=== PATIENT | male | born 1940 | race Caucasian/White ===

== ENCOUNTER 2021-07-25 14:49 | Observation (INO) | payer MEDICARE, OTHER ==
[~2021-07-25] VITALS: Ht 162 cm; Wt 68.5 kg
[2021-07-25 15:16] LABS: BILIRUBIN,URINE NEGATIVE (NEGATIVE); CLARITY,URINE CLEAR; COLOR,URINE YELLOW; GLUCOSE, URINE (UA) NEGATIVE (NEGATIVE); KETONES,URINE TRACE (NEGATIVE); LEUKOCYTE ESTERASE ,URINE NEGATIVE (NEGATIVE); NITRITE,URINE NEGATIVE (NEGATIVE); PROTEIN,URINE NEGATIVE (NEGATIVE)
[2021-07-25 15:24] LABS: BACTERIA,URINE TRACE /HPF; RBC,URINE 50-100 /HPF; SQUAMOUS EPITHELIAL CELL,UR RARE /HPF; WBC,URINE 0-2 /HPF
[2021-07-25 15:41] LABS: BASOPHILS % (AUTO) 1 % (0-10); EOSINOPHILS % (AUTO) 1 % (0-10); HEMATOCRIT 44 % (40-54); HEMOGLOBIN 14.4 g/dL (13.3-17.7); LYMPHOCYTES # (AUTO) 0.9 X 10^3 (1.0-4.0); LYMPHOCYTES % (AUTO) 11 % (12-44); MEAN CORPUSCULAR HEMOGLOBIN 31 pg (25-34); MEAN CORPUSCULAR HGB CONC 33 g/dL (32-36); MEAN CORPUSCULAR VOLUME 93 fL (80-99); MONOCYTES % (AUTO) 10 % (0-12); NEUTROPHILS % (AUTO) 77 % (42-75); PLATELET COUNT 183 10^3/uL (130-400); PROTHROMBIN TIME PATIENT 13.8 SEC (12.2-14.7); WHITE BLOOD COUNT 7.8 10^3/uL (4.3-11.0)
[2021-07-25 15:42] LABS: EOSINOPHILS # (AUTO) 0.1 10^3/uL (0.0-0.3); MONOCYTES # (AUTO) 0.7 X 10^3 (0.0-1.0)
[2021-07-25 16:00] LABS: ALANINE AMINOTRANSFERASE 15 U/L (0-55); ALKALINE PHOSPHATASE 85 U/L (40-136); BILIRUBIN,TOTAL 0.5 MG/DL (0.1-1.0); BUN/CREATININE RATIO 20; CALCIUM 9.5 MG/DL (8.5-10.1); CARBON DIOXIDE 27 MMOL/L (21-32); CHLORIDE 109 MMOL/L (98-107); CREATININE SERUM 1.15 MG/DL (0.60-1.30); GFR ESTIMATED 61; GLUCOSE 126 MG/DL (70-105); SODIUM 143 MMOL/L (135-145)
[2021-07-25 16:01] LABS: ALBUMIN 4.3 GM/DL (3.2-4.5); TOTAL PROTEIN 7.3 GM/DL (6.4-8.2)
--- NOTE | 2021-07-25 16:10 | ED General ---
General Chief Complaint: COVID19 Suspect/Confirmed Stated Complaint: AMS Nursing Triage Note: PT REPORTS A DRY COUGH THAT STARTED YESTERDAY, CHILLS LAST PM, AND CONFUSION THIS AM. REPORTS A HEADACHE THAT STARTED AT ABOUT NOON. Source of Information: Patient, Family History of Present Illness Date Seen by Provider: Jul 25, 2021 Time Seen by Provider: 14:54 Initial Comments 81-year-old male presenting with his and son to the emergency department. He reports that he was having confusion and having trouble walking. He started having some cough with a sore throat chills yesterday. He had a headache starting around 10 AM today. He had noted that he was having trouble concentrating and and felt he was confused when he woke up at 6 AM. He felt that this has improved some throughout the day. He was having some unsteady gait and felt like he could not walk a straight line. He states his cough is dry. He was having no nausea, vomiting, pain with urination, diarrhea, abdominal pain, chest pain. He does have a history of coronary artery disease and had previous CABG. He recently within the last month had seen his last inserter from [facility] and had a cardiac work-up and checkup. They also looked at his carotid arteries at that time. 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 Severity: Moderate Associated Systoms: No Chest Pain; Cough; No Diaphoresis; Fever/Chills, Headaches; No Loss of Appetite, No Nausea/Vomiting, No Rash, No Seizure, No Shortness of Air, No Syncope, No Weakness Allergies and Home Medications Allergies Coded Allergies: No Known Drug Allergies (Unverified , 07/25/21) Patient Home Medication List Home Medication List Reviewed: Yes Review of Systems Review of Systems Constitutional: chills, malaise EENTM: nose congestion, throat pain; No ear discharge, No ear pain, No blurred vision, No double vision, No epistaxis Respiratory: cough, short of breath; No stridor, No wheezing Cardiovascular: No chest pain Gastrointestinal: no symptoms reported Genitourinary: No dysuria, No frequency Musculoskeletal: No joint swelling, No neck pain Skin: No rash Psychiatric/Neurological: Headache; Denies Weakness; Other (unsteady gait) Hematologic/Lymphatic: Denies Blood Clots Past Skbsxry-Avymvd-Qozmda Hx Patient Social History Tobacco Use?: No Use of E-Cig and/or Vaping dev: No Substance use?: No Alcohol Use?: No Pt feels they are or have been: No Past Medical History Surgery/Hospitalization HX: Hx CABG, Htn, Hypercholesterolemia, restless legs Surgeries: Yes Cardiac, CABG Physical Exam Vital Signs Vital Signs - First Documented 07/25/21 15:00 Temp 36.6 Pulse 73 Resp 16 B/P (MAP) 164/74 (104) Pulse Ox 96 O2 Delivery Room Air Capillary Refill : Less Than 3 Seconds Height, Weight, BMI Height: '" Weight: lbs. oz. kg; 26.00 BMI Method: General Appearance: No Apparent Distress, WD/WN HEENT: PERRL/EOMI, Pharynx Normal, Moist Mucous Membranes Neck: Full Range of Motion, Normal Inspection, Non Tender, Supple Respiratory: Chest Non Tender, Lungs Clear, Normal Breath Sounds, No Accessory Muscle Use, No Respiratory Distress Cardiovascular: Regular Rate, Rhythm, Normal Peripheral Pulses Gastrointestinal: Normal Bowel Sounds, No Pulsatile Mass, Non Tender, Soft Rectal: Deferred Back: No CVA Tenderness Extremity: Normal Capillary Refill, Normal Inspection, No Calf Tenderness, No Pedal Edema Neurologic/Psychiatric: Alert, Oriented x3, No Motor/Sensory Deficits, cell changer II- XII Norm as Tested Skin: Normal Color, Warm/Dry Focused Exam Lactate Level 07/25/21 15:45: Lactic Acid Level 0.72 Lactic Acid Level Laboratory Tests Test 07/25/21 15:45 Lactic Acid Level 0.72 MMOL/L (0.50-2.00) Progress/Results/Core Measures Suspected Sepsis SIRS Temperature: Pulse: 73 Respiratory Rate: 16 Laboratory Tests 07/25/21 15:05: White Blood Count 7.8 Blood Pressure 164 /74 Mean: 104 07/25/21 15:45: Lactic Acid Level 0.72 Laboratory Tests 07/25/21 15:05: Creatinine 1.15, INR Comment 1.0, Platelet Count 183, Total Bilirubin 0.5 Results/Orders Lab Results Laboratory Tests Test 07/25/21 14:59 07/25/21 15:05 07/25/21 15:45 07/25/21 15:50 Range/Units Urine Color YELLOW Urine Clarity CLEAR Urine pH 6.0 5-9 Urine Specific [place] 1.025 H 1.016-1.022 Urine Protein NEGATIVE NEGATIVE Urine Glucose (UA) NEGATIVE NEGATIVE Urine Ketones TRACE H NEGATIVE Urine Nitrite NEGATIVE NEGATIVE Urine Bilirubin NEGATIVE NEGATIVE Urine Urobilinogen 0.2 < = 1.0 MG/DL Urine Leukocyte Esterase NEGATIVE NEGATIVE Urine RBC (Auto) 2+ H NEGATIVE Urine RBC 50-100 H /HPF Urine WBC 0-2 /HPF Urine Squamous Epithelial Cells RARE /HPF Urine Crystals NONE /LPF Urine Bacteria TRACE /HPF Urine Casts PRESENT /LPF Urine Hyaline Casts 5-10 H /LPF Urine Mucus LARGE H /LPF Urine Culture Indicated NO White Blood Count 7.8 4.3-11.0 10^3/uL Red Blood Count 4.68 4.30-5.52 10^6/uL Hemoglobin 14.4 13.3-17.7 g/dL Hematocrit 44 40-54 % Mean Corpuscular Volume 93 80-99 fL Mean Corpuscular Hemoglobin 31 25-34 pg Mean Corpuscular Hemoglobin Concent 33 32-36 g/dL Red Cell Distribution Width 13.4 10.0-14.5 % Platelet Count 183 130-400 10^3/uL Mean Platelet Volume 11.0 9.0-12.2 fL Neutrophils (%) (Auto) 77 H 42-75 % Lymphocytes (%) (Auto) 11 L 12-44 % Monocytes (%) (Auto) 10 0-12 % Eosinophils (%) (Auto) 1 0-10 % Basophils (%) (Auto) 1 0-10 % Neutrophils # (Auto) 6.0 1.8-7.8 X 10^3 Lymphocytes # (Auto) 0.9 L 1.0-4.0 X 10^3 Monocytes # (Auto) 0.7 0.0-1.0 X 10^3 Eosinophils # (Auto) 0.1 0.0-0.3 10^3/uL Basophils # (Auto) 0.0 0.0-0.1 10^3/uL Prothrombin Time 13.8 12.2-14.7 SEC INR Comment 1.0 0.8-1.4 Activated Partial Thromboplast Time 30 24-35 SEC Sodium Level 143 135-145 MMOL/L Potassium Level 4.0 3.6-5.0 MMOL/L Chloride Level 109 H 98-107 MMOL/L Carbon Dioxide Level 27 21-32 MMOL/L Anion Gap 7 5-14 MMOL/L Blood Urea Nitrogen 23 H 7-18 MG/DL Creatinine 1.15 0.60-1.30 MG/DL Estimat Glomerular Filtration Rate 61 BUN/Creatinine Ratio 20 Glucose Level 126 H 70-105 MG/DL Calcium Level 9.5 8.5-10.1 MG/DL Corrected Calcium 9.3 8.5-10.1 MG/DL Total Bilirubin 0.5 0.1-1.0 MG/DL Aspartate Amino Transf (AST/SGOT) 19 5-34 U/L Alanine Aminotransferase (ALT/SGPT) 15 0-55 U/L Alkaline Phosphatase 85 40-136 U/L Troponin I < 0.30 <0.30 NG/ML C-Reactive Protein 4.08 H <0.50 MG/DL Total Protein 7.3 6.4-8.2 GM/DL Albumin 4.3 3.2-4.5 GM/DL Lactic Acid Level 0.72 0.50-2.00 MMOL/L Influenza Type A Antigen NEGATIVE NEGATIVE Influenza Type B Antigen NEGATIVE NEGATIVE SARS-CoV-2 RNA (RT-PCR) Positive H Negative My Orders Orders - HEATHER ZABALA MD Ua Culture If Indicated (07/25/21 14:56) Monitor-Rhythm Ecg Trace Only (07/25/21 15:25) Ed Iv/Invasive Line Start (07/25/21 15:25) Cbc With Automated Diff (07/25/21 15:25) Comprehensive Metabolic Panel (07/25/21 15:25) Crp Fs (07/25/21 15:25) Troponin I Fs (07/25/21 15:25) Protime With Inr (07/25/21 15:25) Partial Thromboplastin Time (07/25/21 15:25) Ekg Tracing (07/25/21 15:25) Covid 19 Inhouse Test (07/25/21 15:25) Influenza A & B Antigens (07/25/21 15:25) Ct Head Wo (07/25/21 15:25) Chest 1 View Ap/Pa Only (07/25/21 15:25) Isolation Central Supply Req (07/25/21 15:25) Blood Culture (07/25/21 15:25) Lactic Acid Analyzer (07/25/21 15:25) Ed Admission (Communication) (07/25/21 17:50) Vital Signs/I&O 07/25/21 07/25/21 07/25/21 15:00 15:00 18:18 Temp 36.6 36.2 Pulse 73 81 Resp 16 16 B/P (MAP) 164/74 (104) 176/85 Pulse Ox 96 98 O2 Delivery Room Air Room Air Room Air Capillary Refill : Less Than 3 Seconds Blood Pressure Mean: 104 Progress Note #1: Progress Note Obtain basic labs including urinalysis and cardiac enzymes. Chest x-ray to look for signs of pneumonia. CT of the head since he was complaining of headache and some trouble concentrating and confusion. With his complaint of cough with chills and a sore throat we will also obtain a swab to check for influenza and Covid. Progress Note #2: Progress Note He had no acute ischemia on his electrocardiogram. His chest x-ray does not show any pneumonia. There was some chronic microvascular small vessel disease on his CT of the head. Labs appeared stable with out acute significant abnormality to explain his symptoms. His urinalysis was not showing infection. Influenza was negative. With his complaint and reported feeling unsteady with walking as well as having trouble concentrating and confusion will check with Dr. Urbina for [facility] about admission for TIA work-up and rule out as well as having him as a Covid PUI since the had some symptoms consistent with Covid Progress Note #3: Progress Note Dr. Urbina accepted pt for admit and will continue to monitor. ECG Initial ECG Impression Date: Jul 25, 2021 Initial ECG Impression Time: 15:38 Initial ECG Rate: 72 Initial ECG Rhythm: Normal Sinus Initial ECG Comparisson: No Previous ECG Available Comment Normal sinus rhythm with heart rate 72 bpm. [place] interval 161 ms. Abnormal inferior Q waves. Old anteroseptal infarct with Q waves in V1 and V2. QT interval 388 ms with a QTc interval 425 ms. No prior tracing immediately available for comparison. No acute ST elevation. Diagnostic Imaging Diagonstic Imaging: Xray Plain Films/CT/US/NM/MRI: chest [facility] [place] [place] NAME: TG [facility]FFIELD [facility] REC#: [id number] PT STATUS: REG ER : 1940 PHYSICIAN: HEATHER ZABALA MD ADMIT DATE: 07/25/21/ER FS Signed Date of Exam:07/25/21 CHEST 1 VIEW AP/PA ONLY INDICATION: COVID type symptoms, confusion. COMPARISONS: None FINDINGS: Single view of the chest shows normal heart, pleura and diaphragms. The chest is otherwise senescent with chronic parenchymal changes. No acute consolidations seen. There is a previous median sternotomy for CABG. IMPRESSION: Senescent chest with a previous CABG but no evidence of acute cardiopulmonary disease by plain radiographic criteria. Dictated by: Dictated on workstation # [id number] Dict: 07/25/21 1612 Trans: 07/25/21 1649 CV [id number] Interpreted by: VIC DAY MD Electronically signed by: VIC DAY MD 07/25/211648 Reviewed: Reviewed by Me Diagonstic Imaging: CT Plain Films/CT/US/NM/MRI: head Comments [facility] [place] [place] NAME: TG SHEFFIELD [facility] REC#: [id number] PT STATUS: REG ER : 1940 PHYSICIAN: HEATHER ZABALA MD ADMIT DATE: 07/25/21/ER FS Signed Date of Exam:07/25/21 CT HEAD WO INDICATION: Altered mental status and unsteady gait. TECHNIQUE: Multiple contiguous axial images were obtained through the brain without the use of intravenous contrast. Auto Exposure Controls were utilized during the CT exam to meet ALARA standards for radiation dose reduction. COMPARISON :There is no prior study for comparison. There are mild diffuse atrophic changes. There are no extra-axial fluid collections. No intracranial hemorrhage. No intracranial mass or mass effect. No midline shift. The ventricles are normal in size and position. 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 IMPRESSION: Mild diffuse atrophic changes. 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 There is no acute hemorrhage. Dictated by: Dictated on workstation # [id number] Dict: 07/25/21 1611 Trans: 07/25/219 ACB [id number] Interpreted by: ABEL FRANCES MD Electronically signed by: ABEL FRANCES MD 07/25/21 2779 Reviewed: Reviewed by Me Departure Communication (Admissions) Time/Spoke to Admitting Phy: 17:[address] Urbina about his mental status change that was worse this morning and has improved throughout the day. He still has unsteady gait and feels like he has trouble concentrating. Will admit for additional monitoring testing. He did have recent carotid Dopplers had shown up to 50% blockage but nothing surgical or emergent. And he had cardiac evaluation by his last inserter along with the carotid Dopplers within the last month and told that everything had looked stable. Impression Primary Impression: Unsteady gait when walking Additional Impressions: Confusion and disorientation Person under investigation for COVID-19 Disposition: 30 STILL A PATIENT Condition: Stable Admissions Decision to Admit Reason: Admit from ER (General) Decision to Admit/Date: Jul 25, 2021 Time/Decision to Admit Time: 17:49 Departure-Patient Inst. Referrals: ALE CORNELL MD (PCP) Primary Care Physician HEATHER ZABALA MD Jul 25, 2021 16:10
--- NOTE | 2021-07-25 16:15 | Diagnostic Imaging Report ---
INDICATION: COVID type symptoms, confusion. COMPARISONS: None FINDINGS: Single view of the chest shows normal heart, pleura and diaphragms. The chest is otherwise senescent with chronic parenchymal changes. No acute consolidations seen. There is a previous median sternotomy for CABG. IMPRESSION: Senescent chest with a previous CABG but no evidence of acute cardiopulmonary disease by plain radiographic criteria. Dictated by: Dictated on workstation # [id number]
--- NOTE | 2021-07-25 16:16 | Diagnostic Imaging Report ---
INDICATION: Altered mental status and unsteady gait. TECHNIQUE: Multiple contiguous axial images were obtained through the brain without the use of intravenous contrast. Auto Exposure Controls were utilized during the CT exam to meet ALARA standards for radiation dose reduction. COMPARISON :There is no prior study for comparison. There are mild diffuse atrophic changes. There are no extra-axial fluid collections. No intracranial hemorrhage. No intracranial mass or mass effect. No midline shift. The ventricles are normal in size and position. 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 IMPRESSION: Mild diffuse atrophic changes. 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 There is no acute hemorrhage. Dictated by: Dictated on workstation # [id number]
[2021-07-25 19:50] VITALS: BP 179/85
[2021-07-25] MEDS ORDERED: ACETAMINOPHEN 500 MG TAB (TYLENOL) PO PRN (21:15)
[2021-07-25 23:45] VITALS: BP 121/60
[2021-07-26 03:55] VITALS: BP 167/85
[2021-07-26 06:50] LABS: BASOPHILS % (AUTO) 1 % (0-10); EOSINOPHILS # (AUTO) 0.3 10^3/uL (0.0-0.3); EOSINOPHILS % (AUTO) 4 % (0-10); HEMATOCRIT 42 % (40-54); HEMOGLOBIN 13.6 g/dL (13.3-17.7); LYMPHOCYTES # (AUTO) 1.1 10^3/uL (1.0-4.0); LYMPHOCYTES % (AUTO) 14 % (12-44); MEAN CORPUSCULAR HEMOGLOBIN 30 pg (25-34); MEAN CORPUSCULAR HGB CONC 33 g/dL (32-36); MEAN CORPUSCULAR VOLUME 93 fL (80-99); MEAN PLATELET VOLUME 11.1 fL (9.0-12.2); MONOCYTES # (AUTO) 0.8 10^3/uL (0.0-1.0); MONOCYTES % (AUTO) 10 % (0-12); NEUTROPHILS # (AUTO) 5.5 10^3/uL (1.8-7.8); NEUTROPHILS % (AUTO) 71 % (42-75); PLATELET COUNT 171 10^3/uL (130-400); WHITE BLOOD COUNT 7.7 10^3/uL (4.3-11.0)
[2021-07-26 07:02] LABS: ALBUMIN 3.7 GM/DL (3.2-4.5); POTASSIUM 4.1 MMOL/L (3.6-5.0)
[2021-07-26 07:03] LABS: CALCIUM 9.2 MG/DL (8.5-10.1)
[2021-07-26 07:04] LABS: TOTAL PROTEIN 6.7 GM/DL (6.4-8.2)
[2021-07-26 07:06] LABS: BILIRUBIN,TOTAL 0.6 MG/DL (0.1-1.0)
[2021-07-26 07:08] LABS: CREATININE SERUM 0.87 MG/DL (0.60-1.30)
[2021-07-26 08:51] VITALS: BP 179/90
[2021-07-26] MEDS ORDERED: ATOR20TA66 PO (09:39)
[2021-07-26] MEDS ORDERED: ASPI-1238 PO (09:39)
[2021-07-26] MEDS ORDERED: CARV6.252 PO (09:39)
[2021-07-26] MEDS ORDERED: MULT-1136 PO (09:39)
[2021-07-26] MEDS ORDERED: ROPI0.5T4 PO (09:39)
[2021-07-26 11:37] VITALS: BP 141/75
--- NOTE | 2021-07-26 13:19 | Short Stay Summary ---
Discharge Summary Hospital Course Final Diagnosis: COVID19, possible TIA Hospital Course Date of Admission: Jul 25, 2021 at 19:40 Admission Diagnosis : Confusion Balance disturbance Coronary artery disease Hypertension Family Physician/Provider: Papa West MD Date of Discharge: 07/26/21 Discharge Diagnosis: Confusion Balance disturbance COVID19 Coronary artery disease Hypertension Hospital Course: 81 yo male had some confusion and was somewhat off balance starting around 07/24/21 and was sent to ER due to that, his CT of his head showed some old infarct, but no acute findings and he was having some improvement in his symptoms already. He was admitted for monitoring and found to have positive COVID19 testing. Other labs were unremarkable. He worked with PT and was independent in activities with no balance problems. He was alert and oriented and able to answer questions appropriately, but still felt generally foggy, this was suspected to be related to COVID rather than ischemia, but discussed with his daughter if symptoms persist, may need further work-up. He had no hypoxia, so monoclonal antibody infusion was discussed, but none available today, so orders for outpatient were being set up through clinic on discharge. He has one dose of COVID vaccine documented in clinic on 12/2020. Labs and Pending Lab Test: Laboratory Tests 07/25/21 14:59: Urine Color YELLOW, Urine Clarity CLEAR, Urine pH 6.0, Urine Specific [place] 1.025H, Urine Protein NEGATIVE, Urine Glucose (UA) NEGATIVE, Urine Ketones TRACEH, Urine Nitrite NEGATIVE, Urine Bilirubin NEGATIVE, Urine Urobilinogen 0.2, Urine Leukocyte Esterase NEGATIVE, Urine RBC (Auto) 2+H, Urine RBC 50-100H, Urine WBC 0-2, Urine Squamous Epithelial Cells RARE, Urine Crystals NONE, Urine Bacteria TRACE, Urine Casts PRESENT, Urine Hyaline Casts 5-10H, Urine Mucus LARGEH, Urine Culture Indicated NO 07/25/21 15:05: White Blood Count 7.8, Red Blood Count 4.68, Hemoglobin 14.4, Hematocrit 44, Me an Corpuscular Volume 93, Mean Corpuscular Hemoglobin 31, Mean Corpuscular Hemoglobin Concent 33, Red Cell Distribution Width 13.4, Platelet Count 183, Mean Platelet Volume 11.0, Neutrophils (%) (Auto) 77H, Lymphocytes (%) (Auto) 11L, Monocytes (%) (Auto) 10, Eosinophils (%) (Auto) 1, Basophils (%) (Auto) 1, Neutrophils # (Auto) 6.0, Lymphocytes # (Auto) 0.9L, Monocytes # (Auto) 0.7, Eosinophils # (Auto) 0.1, Basophils # (Auto) 0.0, Prothrombin Time 13.8, INR Comment 1.0, Activated Partial Thromboplast Time 30, Sodium Level 143, Potassium Level 4.0, Chloride Level 109H, Carbon Dioxide Level 27, Anion Gap 7, Blood Urea Nitrogen 23H, Creatinine 1.15, Estimat Glomerular Filtration Rate 61, BUN/Creatinine Ratio 20, Glucose Level 126H, Calcium Level 9.5, Corrected Calcium 9.3, Total Bilirubin 0.5, Aspartate Amino Transf (AST/SGOT) 19, Alanine Aminotransferase (ALT/SGPT) 15, Alkaline Phosphatase 85, Troponin I < 0.30, C- Reactive Protein 4.08H, Total Protein 7.3, Albumin 4.3 07/25/21 15:45: Lactic Acid Level 0.72 07/25/21 15:50: Influenza Type A Antigen NEGATIVE, Influenza Type B Antigen NEGATIVE, SARS-CoV-2 RNA (RT-PCR) PositiveH 07/26/21 06:29: White Blood Count 7.7, Red Blood Count 4.49, Hemoglobin 13.6, Hematocrit 42, Mean Corpuscular Volume 93, Mean Corpuscular Hemoglobin 30, Mean Corpuscular Hemoglobin Concent 33, Red Cell Distribution Width 13.1, Platelet Count 171, Mean Platelet Volume 11.1, Immature Granulocyte % (Auto) 0, Neutrophils (%) (Auto) 71, Lymphocytes (%) (Auto) 14, Monocytes (%) (Auto) 10, Eosinophils (%) (Auto) 4, Basophils (%) (Auto) 1, Neutrophils # (Auto) 5.5, Lymphocytes # (Auto) 1.1, Monocytes # (Auto) 0.8, Eosinophils # (Auto) 0.3, Basophils # (Auto) 0.0, Immature Granulocyte # (Auto) 0.0, Sodium Level 142, Potassium Level 4.1, Chloride Level 107, Carbon Dioxide Level 25, Anion Gap 10, Blood Urea Nitrogen 19H, Creatinine 0.87, Estimat Glomerular Filtration Rate 84, BUN/Creatinine Ratio 22, Glucose Level 93, Calcium Level 9.2, Corrected Calcium 9.4, Total Bilirubin 0.6, Aspartate Amino Transf (AST/SGOT) 19, Alanine Aminotransferase (ALT/SGPT) 15, Alkaline Phosphatase 63, Total Protein 6.7, Albumin 3.7 Home Meds Active Reported Multivitamin 1 Each Tablet 1 Each PO DAILY Aspirin EC (Aspirin) 81 Mg Tablet. 81 Mg PO DAILY Carvedilol 6.25 Mg Tablet 6.25 Mg PO BID WITH MEALS Ropinirole HCl 0.5 Mg Tablet 0.5 Mg PO HS Atorvastatin Calcium 20 Mg Tablet 20 Mg PO HS Assessment/Pt Instructions Follow up with Dr. West within one week of discharge. Discharge Instructions Discharge Diet: Cardiac Diet Activity as Tolerated: Yes Discharge Physical Examination General Appearance: Alert, Oriented X3, No Acute Distress Respiratory: Clear to Auscultation, Normal Air Movement Cardiovascular: Regular Rate, No Murmurs Abdominal: Normal Bowel Sounds, Soft Extremities: No Edema Neuro: Normal Gait, Normal Speech, Strength at 5/5 X4 Ext, Cranial Nerves 3-12 NL, Other (some notable tremor with activity, no rest tremor) Allergies: Coded Allergies: No Known Drug Allergies (Unverified , 07/25/21) Discharge Summary Date of Admission Jul 25, 2021 at 19:40 Date of Discharge ANGELES MORRIS MD Jul 26, 2021 13:19
--- NOTE | 2021-07-26 13:38 | Physical Therapy Evaluation ---
PT Evaluation-General Medical Diagnosis Admission Date Jul 25, 2021 at 19:40 Medical Diagnosis: confusion/Covid Onset Date: Jul 25, 2021 Therapy Diagnosis Therapy Diagnosis: debility Precautions Precautions/Isolations: Contact Isolation, Droplet Isolation Referral Physician: Carlitos Reason for Referral: Evaluation/Treatment Medical History Pertinent Medical History: CABG, CAD Current History ER secondary to cough and confusion Reviewed History: Yes Social History Home: Single Level Current Living Status: Spouse Entry Into Home: Ramp Prior Prior Level of Function SCALE: Activities may be completed with or without assistive devices. 3-Khxtdkkmtw-icqpkoo completes the activity by him/herself with no assistance from a helper. 5-Set-up or Clean-up Assistance-helper sets up or cleans up; patient completes activity. [place] assists only prior to or following the activity. 4-Supervision or Touching Assistance-helper provides verbal cues and/or touching/steadying and/or contact guard assistance as patient completes activity. Assistance may be provided throughout the activity or intermittently. 3-Partial/Moderate Assistance-helper does LESS THAN HALF the effort. [place] lifts, holds or supports trunk or limbs, but provides less than half the effort. 2-Substantial/Maximal Assistance-helper does MORE THAN HALF the effort. [place] lifts or holds trunk or limbs and provides more than half the effort. 7-Pcfgfzvtx-thcceg does ALL the effort. Patient does none of the effort to complete the activity. Or, the assistance of 2 or more helpers is required for the patient to complete the activity. If activity was not attempted, code reason: 7-Patient Refused. 9-Not Applicable-not attempted and the patient did not perform the activity before the current illness, exacerbation or injury. 10-Not Attempted due to Environmental Limitations-(lack of equipment, weather restraints, etc.). 88-Not Attempted due to Medical Conditions or Safety Concerns. Bed Mobility: 6 Transfers (B,C,W/C): 6 Gait: 6 Indoor Mobility (Ambulation): Independent Prior Devices Use: None PT Evaluation-Current Subjective Patient agrees to PT. No c/o. Objective Patient Orientation: Normal For Age ROM/Strength ROM Lower Extremities bilateral LE WFL Strength Lower Extremities 4/5 grossly bilateral LE Integumentary/Posture Bowel Incontinence: No Bladder Incontinence: No Posture WFL Neuromuscular (Tone, Coordination, Reflexes) grossly intact with all Sensory Vision: Wears Glasses Hearing: Impaired Transfers Lying to Sitting/Side of Bed(Q: 6 Sit to Stand (QC): 6 Chair/Ibj-hq-Nlgvf Xfer(QC): 6 Gait Does the Patient Walk?: Yes Mode of Locomotion: Walk Anticipated Mode of Locomotion: Walk Walk 10 feet (QC): 6 Walk 50 ft with 2 Turns(QC): 6 Walk 150 ft (QC): 6 Distance: 200' Gait Assistive Device: None Comments/Gait Description safe and functional with no deviation Balance Sitting Static: Normal Sitting Dynamic: Normal Standing Static: Normal Standing Dynamic: Normal Picking up an Object (QC): 6 Assessment/Needs 81 y.o. male, is currently at [facility] with all gross motor skills and does not require skilled PT intervention. Rehab Potential: Fair PT Plan Treatment/Plan Treatment Plan: Discontinue PT, goals met Treatment Duration: Jul 26, 2021 Frequency: 1 time per week Estimated Hrs Per Day: .25 hour per day Patient and/or Family Agrees t: Yes Time/GCodes Time In: 1245 Time Out: 1301 Total Billed Treatment Time: 16 Total Billed Treatment 1 visit EVLowC 16 min SKYLER KEYS PT Jul 26, 2021 13:38
--- NOTE | 2021-07-26 14:02 | Occupational Therapy Eval ---
OT Evaluation-General/PLF Medical Diagnosis Admission Date Jul 25, 2021 at 19:40 Medical Diagnosis: confusion/Covid Onset Date: Jul 25, 2021 Therapy Diagnosis Therapy Diagnosis: n/a Precautions Precautions/Isolations: Contact Isolation, Droplet Isolation Referral Physician: Carlitos Referral Reason: Evaluation/Treatment Medical History Pertinent Medical History: CABG, CAD, HTN Current History ED due to weakness and confusion Social History Home: Single Level Current Living Status: Spouse Entry Into Home: Ramp ADL-Prior Level of Function SCALE: Activities may be completed with or without assistive devices. 3-Kycevtyqdj-vozuddk completes the activity by him/herself with no assistance from a helper. 5-Set-up or Clean-up Assistance-helper sets up or cleans up; patient completes activity. [place] assists only prior to or following the activity. 4-Supervision or Touching Assistance-helper provides verbal cues and/or touching/steadying and/or contact guard assistance as patient completes activity. Assistance may be provided throughout the activity or intermittently. 3-Partial/Moderate Assistance-helper does LESS THAN HALF the effort. [place] lifts, holds or supports trunk or limbs, but provides less than half the effort. 2-Substantial/Maximal Assistance-helper does MORE THAN HALF the effort. [place] lifts or holds trunk or limbs and provides more than half the effort. 4-Injihksnm-otlrkp does ALL the effort. Patient does none of the effort to complete the activity. Or, the assistance of 2 or more helpers is required for the patient to complete the activity. If activity was not attempted, code reason: 7-Patient Refused. 9-Not Applicable-not attempted and the patient did not perform the activity before the current illness, exacerbation or injury. 10-Not Attempted due to Environmental Limitations-(lack of equipment, weather restraints, etc.). 88-Not Attempted due to Medical Conditions or Safety Concerns. ADL PLOF Comments Pt reports IND with ADLs and functional mobility at PLOF, no AD/AE Self Care: Independent Functional Cognition: Independent OT Current Status Subjective Pt up in recliner eating lunch, agreeable to OT evaluation. Pt hope to be able to discharge today. Mental Status/Objective Patient Orientation: Person, Place, Time, Situation Current Upper Extremity ROM WFL Upper Extremity Coordination WFL Upper Extremity Strength WFL ADL-Treatment Eating (QC): 6 (IND with lunch) Oral Hygiene (QC): 6 (Per clincial judgment) Upper Body Dressing (QC): 6 (Per clincial judgment and pt report.) Lower Body Dressing (QC): 6 (Per clincial judgment and pt report.) On/Off Footwear (QC): 6 (Per clincial judgment and pt report.) Toileting Hygiene (QC): 6 (Per clincial judgment and pt report.) Other Treatments Pt up in recliner, agreeable to OT evaluation. Pt fully dressed, states he dressed himself without difficulty. Pt completed sit to stand, then functional mobility to door and back to recliner without AD, independently. Pt returned seated. Pt indicates he has no concerns with his ability to complete ADLs and feels like he is at PLOF. Post tx, pt up in recliner, call light in reach and all needs met. Education OT Patient Education: Correct positioning, Modified ADL techniques, Progress toward Goal/Update tx plan, Purpose of tx/functional activities, Rehab process Teaching Recipient: Patient Teaching Methods: Discussion Response to Teaching: Verbalize Understanding OT Dimethylaniline Sulfator Operator Goals Dimethylaniline Sulfator Operator Goals 1=Demonstrate adherence to instructed precautions during ADL tasks. 2=Patient will verbalize/demonstrate understanding of assistive devices /modifications for ADL. 3=Patient will improve strength/tolerance for activity to enable patient to perform ADL's. OT Education/Plan Problem List/Assessment Assessment: No Skilled OT Needs ID'd No skilled OT services indicated at this time, as pt is at PLOF and independent with ADLs. Discharge Recommendations Plan/Recommendations: Discharge/Goals Met Treatment Plan/Plan of Care Patient would benefit from OT for education, treatment and training to promote independence in ADL's, mobility, safety and/or upper extremity function for AD L's. Plan of Care: ADL Retraining, Functional Mobility Treatment Duration: Jul 26, 2021 Frequency: 1 time per week (eval only) Rehab Potential: Fair Time/GCodes Start Time: 13:15 Stop Time: 13:23 Total Time Billed (hr/min): 8 Billed Treatment Time 1, MICHAEL ANDINO OT Jul 26, 2021 14:02
[2021-07-26 14:53] VITALS: BP 141/75
[2021-07-26] MEDS ORDERED: rOPINIRole 1 MG (REQUIP) TABLET PO SCH (21:00)
[2021-07-27] MEDS ORDERED: ASPIRIN E.C. 81 MG (ECOTRIN) TAB PO SCH (09:00)
[2021-07-27] MEDS ORDERED: MULTIVIT W/MINERALS TAB (THERAGRAN M) PO SCH (09:00)
== END 2021-07-26 15:50 | disposition home or self-care (01) ==
LOC: ER FS 14:51 → 4TH 19:40
PROVIDERS: ADMIT Family Medicine; ATTEND Internal Medicine
DX: R41.0 Disorientation, unspecified (principal); R26.89 Other abnormalities of gait and mobility; U07.1 COVID-19; I25.10 Atherosclerotic heart disease of native coronary artery without angina pectoris; I10 Essential (primary) hypertension; G25.81 Restless legs syndrome; E78.00 Pure hypercholesterolemia, unspecified; Z79.82 Long term (current) use of aspirin; Z79.899 Other long term (current) drug therapy; Z95.1 Presence of aortocoronary bypass graft
CPT/HCPCS: 36415; 70450; 71045; 80053; 81000; 83605; 84484; 85025; 85610; 85730; 86141; 87040; 87636; 87804; 93005; 93041; G0378

== ENCOUNTER 2022-07-18 11:05 | Emergency (ER) | payer MEDICARE ==
[~2022-07-18] VITALS: Ht 167.7 cm; Wt 70.8 kg
[~2022-07-18 11:05] MED LIST: ASPI-1238 PO; ATOR20TA66 PO; CARV6.252 PO; MULT-1136 PO; ROPI0.5T4 PO
[2022-07-18 11:21] LABS: BASOPHILS % (AUTO) 1 % (0-10); EOSINOPHILS # (AUTO) 0.1 10^3/uL (0.0-0.3); EOSINOPHILS % (AUTO) 2 % (0-10); HEMATOCRIT 44 % (40-54); HEMOGLOBIN 14.4 g/dL (13.3-17.7); LYMPHOCYTES # (AUTO) 0.8 10^3/uL (1.0-4.0); LYMPHOCYTES % (AUTO) 13 % (12-44); MEAN CORPUSCULAR HEMOGLOBIN 31 pg (25-34); MEAN CORPUSCULAR HGB CONC 33 g/dL (32-36); MEAN CORPUSCULAR VOLUME 93 fL (80-99); MEAN PLATELET VOLUME 10.3 fL (9.0-12.2); MONOCYTES # (AUTO) 0.4 10^3/uL (0.0-1.0); MONOCYTES % (AUTO) 7 % (0-12); NEUTROPHILS # (AUTO) 4.5 10^3/uL (1.8-7.8); NEUTROPHILS % (AUTO) 77 % (42-75); PLATELET COUNT 172 10^3/uL (130-400); WHITE BLOOD COUNT 5.9 10^3/uL (4.3-11.0)
[2022-07-18 11:22] LABS: BILIRUBIN,URINE NEGATIVE (NEGATIVE); CLARITY,URINE SL CLOUDY; COLOR,URINE YELLOW; GLUCOSE, URINE (UA) NEGATIVE (NEGATIVE); KETONES,URINE NEGATIVE (NEGATIVE); LEUKOCYTE ESTERASE ,URINE NEGATIVE (NEGATIVE); NITRITE,URINE NEGATIVE (NEGATIVE); PH,URINE 7.5 (5-9); PROTEIN,URINE NEGATIVE (NEGATIVE)
[2022-07-18 11:30] LABS: BACTERIA,URINE NEGATIVE /HPF
[2022-07-18] MEDS ORDERED: cloNIDine 0.1 MG (CATAPRES) TAB PO ONE (11:30)
--- NOTE | 2022-07-18 11:37 | Diagnostic Imaging Report ---
INDICATION: AMS TECHNIQUE: Routine non contrast-enhanced axial images were obtained from the skull base to the vertex. Auto Exposure Controls were utilized during the CT exam to meet ALARA standards for radiation dose reduction COMPARISON: 07/25/2021. FINDINGS: The ventricles and cortical sulci are diffusely prominent, compatible with age-related volume loss. There are confluent areas of abnormal, low attenuation in the periventricular white matter. This is consistent with chronic small vessel ischemic changes. 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 There is no midline shift or mass-effect. No acute intra-axial hemorrhage is seen. There are no abnormal areas of increased or decreased density to suggest acute hemorrhage or edema. No extra-axial masses or collections are present. The bony calvarium is intact. The visualized paranasal sinuses show mild scattered mucosal thickening. The mastoid air cells are clear. IMPRESSION: 1. No acute intracranial abnormality. No CT evidence of mass, acute infarct or intracranial hemorrhage. 2. 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
--- NOTE | 2022-07-18 11:47 | ED General ---
General Chief Complaint: Altered Mental Status Stated Complaint: AMS Nursing Triage Note: Patient reports he received a Moderna COVID-19 booster yesterday after lunch. He reports he woke this morning with a headache, confusion, generalized weakness, and generalized body aches. Patient's states patient had a similar reaction to his last COVID-19 booster. Source of Information: Patient Exam Limitations: No Limitations History of Present Illness Date Seen by Provider: Jul 18, 2022 Time Seen by Provider: 11:15 Initial Comments Patient is an 82-year-old male who presents with generalized weakness body aches and confusion upon waking this morning. Patient also reports mild headache, di fficulty concentrating and delay of speech without slurring. He denies blurred vision, extremity weakness or loss of sensation. No chest pain palpitations shortness of breath. No abdominal pain nausea or vomiting or diarrhea. No urinary frequency urgency or dysuria. No leg pain or swelling. No dizziness or lightheadedness or other strokelike symptoms. No difficulty walking. Patient did receive the Moderna COVID booster yesterday. He states he had similar symptoms following his previous COVID boosters. Timing/Duration: 4-6 Hours Severity: Mild Modifying Factors: improves with Other Associated Systoms: Other Allergies and Home Medications Allergies Coded Allergies: No Known Drug Allergies (Unverified , 07/25/21) Patient Home Medication List Home Medication List Reviewed: Yes Aspirin (Aspirin EC) 81 Mg Tablet.dr, 81 MG PO DAILY, (Reported) Entered as Reported by: ED LUCERO on 07/26/21938 Atorvastatin Calcium (Atorvastatin Calcium) 20 Mg Tablet, 20 MG PO HS, (Reported) Entered as Reported by: DE LUCERO on 07/26/21938 Carvedilol (Carvedilol) 6.25 Mg Tablet, 6.25 MG PO BID WITH MEALS, (Reported) Entered as Reported by: ED LUCERO on 07/26/21938 Multivitamin (Multivitamin) 1 Each Tablet, 1 EACH PO DAILY, (Reported) Entered as Reported by: ED LUCERO on 07/26/21938 Ropinirole HCl (Ropinirole HCl) 0.5 Mg Tablet, 0.5 MG PO HS, (Reported) Entered as Reported by: ED LUCERO on 07/26/21938 Review of Systems Review of Systems Constitutional: see HPI EENTM: see HPI Respiratory: see HPI Cardiovascular: see HPI Gastrointestinal: see HPI Genitourinary: see HPI Musculoskeletal: see HPI Skin: see HPI Psychiatric/Neurological: See HPI Hematologic/Lymphatic: See HPI Immunological/Allergic: see HPI All Other Systems Reviewed Negative Unless Noted: No Past Vzfddxh-Ogchxm-Jcauvt Hx Patient Social History Tobacco Use?: No Use of E-Cig and/or Vaping dev: No Substance use?: No Alcohol Use?: No Pt feels they are or have been: No Immunizations Up To Date First/Initial COVID19 Vaccinat: UNABLE TO RECALL DATE Second COVID19 Vaccination Ricci: UNABLE TO RECALL DATE Third COVID19 Vaccination Date: UNABLE TO RECALL DATE Past Medical History Surgery/Hospitalization HX: Hx CABG, Htn, Hypercholesterolemia, restless legs Surgeries: Yes Cardiac, CABG Physical Exam Vital Signs Vital Signs - First Documented 07/18/22 11:12 Temp 36.2 Pulse 82 Resp 22 B/P (MAP) 196/93 (127) Pulse Ox 96 O2 Delivery Room Air Capillary Refill : Less Than 3 Seconds Height, Weight, BMI Height: '" Weight: lbs. oz. kg; 25.00 BMI Method: General Appearance: No Apparent Distress, WD/WN Eyes: Bilateral Eye Normal Inspection, Bilateral Eye PERRL, Bilateral Eye EOMI HEENT: PERRL/EOMI, Normal ENT Inspection, Pharynx Normal Neck: Normal Inspection, Supple Respiratory: Lungs Clear Cardiovascular: Regular Rate, Rhythm Back: No CVA Tenderness Neurologic/Psychiatric: Alert, Oriented x3, No Motor/Sensory Deficits Focused Exam Sepsis Stage: Ruled Out Progress/Results/Core Measures Suspected Sepsis SIRS Temperature: Pulse: 82 Respiratory Rate: 22 Laboratory Tests 07/18/22 11:15: White Blood Count 5.9 Blood Pressure 196 /93 Mean: 127 Laboratory Tests 07/18/22 11:15: Platelet Count 172 Results/Orders Lab Results Laboratory Tests Test 07/18/22 11:11 07/18/22 11:15 Range/Units Urine Color YELLOW Urine Clarity SL CLOUDY Urine pH 7.5 5-9 Urine Specific [place] 1.015 L 1.016-1.022 Urine Protein NEGATIVE NEGATIVE Urine Glucose (UA) NEGATIVE NEGATIVE Urine Ketones NEGATIVE NEGATIVE Urine Nitrite NEGATIVE NEGATIVE Urine Bilirubin NEGATIVE NEGATIVE Urine Urobilinogen 0.2 < = 1.0 MG/DL Urine Leukocyte Esterase NEGATIVE NEGATIVE Urine RBC (Auto) 2+ H NEGATIVE Urine RBC 5-10 H /HPF Urine WBC NONE /HPF Urine Squamous Epithelial Cells NONE /HPF Urine Crystals NONE /LPF Urine Bacteria NEGATIVE /HPF Urine Casts NONE /LPF Urine Mucus NEGATIVE /LPF Urine Culture Indicated NO White Blood Count 5.9 4.3-11.0 10^3/uL Red Blood Count 4.71 4.30-5.52 10^6/uL Hemoglobin 14.4 13.3-17.7 g/dL Hematocrit 44 40-54 % Mean Corpuscular Volume 93 80-99 fL Mean Corpuscular Hemoglobin 31 25-34 pg Mean Corpuscular Hemoglobin Concent 33 32-36 g/dL Red Cell Distribution Width 13.3 10.0-14.5 % Platelet Count 172 130-400 10^3/uL Mean Platelet Volume 10.3 9.0-12.2 fL Immature Granulocyte % (Auto) 0 % Neutrophils (%) (Auto) 77 H 42-75 % Lymphocytes (%) (Auto) 13 12-44 % Monocytes (%) (Auto) 7 0-12 % Eosinophils (%) (Auto) 2 0-10 % Basophils (%) (Auto) 1 0-10 % Neutrophils # (Auto) 4.5 1.8-7.8 10^3/uL Lymphocytes # (Auto) 0.8 L 1.0-4.0 10^3/uL Monocytes # (Auto) 0.4 0.0-1.0 10^3/uL Eosinophils # (Auto) 0.1 0.0-0.3 10^3/uL Basophils # (Auto) 0.0 0.0-0.1 10^3/uL Immature Granulocyte # (Auto) 0.0 0.0-0.1 10^3/uL My Orders Orders - BROOKS QUINTANA DO Cbc With Automated Diff (07/18/22 11:08) Comprehensive Metabolic Panel (07/18/22 11:08) Troponin I Fs (07/18/22 11:08) Ct Head Wo (07/18/22 11:08) Ekg Tracing (07/18/22 11:08) Magnesium (07/18/22 11:08) Ua Culture If Indicated (07/18/22 11:08) Clonidine Tablet (Catapres Tablet) (12/30/22 11:30) Medications Given in ED Current Medications Medications Dose Ordered Sig/Jeniffer Route Start Time Stop Time Status Last Admin Dose Admin Clonidine HCl 0.1 mg ONCE ONCE PO 07/18/22 11:30 07/18/22 11:31 DC 07/18/22 11:34 0.1 MG Vital Signs/I&O 07/18/22 11:12 Temp 36.2 Pulse 82 Resp 22 B/P (MAP) 196/93 (127) Pulse Ox 96 O2 Delivery Room Air Capillary Refill : Less Than 3 Seconds Blood Pressure Mean: 127 Departure Communication (Admissions) CT head: Old lacunar infarct. Patient with mild confusion body aches related to COVID-vaccine. Patient also noted to be hypertensive in the emergency department likely due to physiologic stress. Single dose of clonidine given with improvement in blood pressure. CT head performed reassuring. No focal neurologic deficits noted on exam. Lab work performed and otherwise reassuring. Recommendations for supportive care watchful waiting and PCP follow-up. Return precautions reviewed. Patient family member verbalizes understanding and agreement with discharge instructions prior to departure. Impression Primary Impression: Confusion and disorientation Disposition: 01 HOME, SELF-CARE Condition: Stable Departure-Patient Inst. Decision time for Depature: 11:47 Referrals: ALE CORNELL MD (PCP) Primary Care Physician Add. Discharge Instructions: Olayinka was evaluated in the emergency department for generalized weakness and confusion. EKG, lab and imaging studies were performed and are reassuring. His symptoms are likely related to COVID booster injection. Please go home and rest take ibuprofen for body aches and headaches and follow-up with your PCP in 3 to 5 days for reevaluation if symptoms persist. Return to the ED if you develop new or worsening symptoms All discharge instructions reviewed with patient and/or family. Voiced understanding. BROOKS QUINTANA DO Jul 18, 2022 11:47
[2022-07-18 11:48] LABS: ALANINE AMINOTRANSFERASE 19 U/L (0-55); ALKALINE PHOSPHATASE 96 U/L (40-136); BUN/CREATININE RATIO 24; CALCIUM 10.1 MG/DL (8.5-10.1); CARBON DIOXIDE 26 MMOL/L (21-32); CHLORIDE 103 MMOL/L (98-107); CREATININE SERUM 0.96 MG/DL (0.60-1.30); GFR ESTIMATED 79; GLUCOSE 108 MG/DL (70-105); MAGNESIUM 2.1 MG/DL (1.6-2.4); POTASSIUM 4.1 MMOL/L (3.6-5.0); SODIUM 140 MMOL/L (135-145)
[2022-07-18 11:49] LABS: ALBUMIN 4.7 GM/DL (3.2-4.5)
[2022-07-18 11:59] VITALS: BP 185/81
== END 2022-07-18 12:01 | disposition home or self-care (01) ==
LOC: EDUNIT# 11:05 → ER FS 11:06
DX: R41.0 Disorientation, unspecified (principal); I10 Essential (primary) hypertension
CPT/HCPCS: 36415; 70450; 80053; 81000; 83735; 84484; 85025; 93005